=== PATIENT | male | born 1955 | race Hispanic/Latino ===

== ENCOUNTER 2016-09-11 14:30 | Emergency (ER) | payer OTHER ==
[~2016-09-11] VITALS: Ht 177.8 cm; Wt 87.1 kg
[~2016-09-11 14:30] MED LIST: ALLOPURINOL100 M1 PO; AMLODIPINE BESYL5 M1 PO; COLCHICINE0.6 M2 PO; CRESTOR20 M2 PO; MOBIC15 M1 PO; MULTI-DAY VITA1 EACH PO; NASONEX17 GM NASB; PANTOPRAZOLE SO40 M1 PO; PROVENTIL HFA6.7 GM INH; RANITIDINE HCL300 M1 PO; VITAMIN D250000 UNIT PO
[2016-09-11] MEDS ORDERED: AFRIN30 ML NASB (15:52)
[2016-09-11] MEDS ORDERED: ADVIL200 M2 PO (15:53)
--- NOTE | 2016-09-11 16:05 | ED GI/GU/ABDOMINAL COMPLAINT ---
History of Present Illness General Chief Complaint: Abdominal Pain/Flank Pain Stated Complaint: HERNIA PAIN Source: patient Exam Limitations: no limitations Vital Signs & Intake/Output Vital Signs & Intake/Output Vital Signs Date Time Temp Pulse Resp B/P B/P Pulse O2 O2 Flow FiO2 Mean Ox Delivery Rate 09/11 1803 98.5 98 20 140/84 98 Room Air 09/11 1602 Room Air 09/11 1437 98.2 102 20 143/86 97 Room Air Allergies Coded Allergies: No Known Allergies (12/06/15) Reconcile Medications Albuterol Sulfate (Proventil Hfa) 6.7 GM HFA.AER.AD 2 PUF INH PRN ASTHMA ( Reported) Allopurinol 100 MG TABLET 1 TAB PO DAILY GOUT (Reported) Amlodipine Besylate 5 MG TABLET 1 TAB PO DAILY BP (Reported) Colchicine 0.6 MG TABLET 1 TAB PO PRN GOUT FLARE (Reported) Doxycycline Hyclate 100 MG TABLET 1 TAB PO BID tick bourne disease Ergocalciferol (Vitamin D2) (Vitamin D2) 50,000 UNIT CAPSULE 1 CAP PO QFRI SUPPLEMENT (Reported) Ergocalciferol (Vitamin D2) (Vitamin D2) 50,000 UNIT CAPSULE 1 CAP PO QW vit d def Ibuprofen (Advil) 200 MG TABLET 2-4 TAB PO PRN PAIN (Reported) Multivitamin (Multi-Day Vitamins) 1 EACH TABLET 1 TAB PO DAILY SUPPLEMENT ( Reported) Oxymetazoline HCl (Afrin) 0.05 % SPRAY 2 SPRAY [place]B DAILY ALLERGIES (Reported ) Pantoprazole Sodium 40 MG TABLET.DR 1 TAB PO DAILY GI (Reported) Ranitidine HCl 300 MG TABLET 1 TAB PO QPM GI (Reported) Rosuvastatin Calcium (Crestor) 20 MG TABLET 1 TAB PO DAILY CHOLESTEROL ( Reported) Triage Note: PT C/O UMBILICAL PAIN FROM WHERE HIS HERNIA WAS REPAIRED IN MARCH. PT STATES SHARP PAINS SINCE YESTERDAY MORNING. TOOK ADVIL FOR PAIN WITHOUT RELIEF. PT C/O DIARRHEA AND NAUSEA. Triage Nurses Notes Reviewed? yes Onset: Abrupt Duration: day(s): (1), constant, continues in ED Timing: recent history Quality/Severity: moderate, sharpness, severe Radiation: LLQ Activities at Onset: none No Modifying Factors: none HPI: 60-year-old male comes into emergency room for further evaluation of left lower abdominal pain. Patient reports that he has a previous history of partial colectomy and 2 hernia repairs. The 2 hernia repairs were performed back in May of this year. It was performed by Dr Maya. Patient complaining of sharp pain today. Denies any fevers or chills. Associated nausea. Denies any change in bowel movement. Denies any other associated symptoms. (LEVAR CARDONA) Past History Travel History Traveled to [place] past 21 day No Medical History Any Pertinent Medical History? see below for history Neurological: NONE EENT: NONE Cardiovascular: hypertension, hyperlipidemia Respiratory: NONE Gastrointestinal: GERD Hepatic: NONE Renal: NONE Musculoskeletal: gout Psychiatric: NONE Endocrine: NONE Blood Disorders: NONE Cancer(s): COLON NARCOTICS INVESTIGATOR/Reproductive: NONE Surgical History Surgical History: non-contributory Psychosocial History What is your primary language Setswana Tobacco Use: Never used ETOH Use: occasional use Illicit Drug Use: denies illicit drug use Family History Hx Contributory? No (LEVAR CARDONA) Review of Systems Review of Systems Constitutional: Reports: no symptoms. EENTM: Reports: no symptoms. Respiratory: Reports: no symptoms. Cardiovascular: Reports: no symptoms. GI: Reports: see HPI. Genitourinary: Reports: no symptoms. Musculoskeletal: Reports: no symptoms. Skin: Reports: no symptoms. Neurological/Psychological: Reports: no symptoms. Hematologic/Endocrine: Reports: no symptoms. Immunologic/Allergic: Reports: no symptoms. All Other Systems: Reviewed and Negative (LEVAR CARDONA) Physical Exam Physical Exam General Appearance: well developed/nourished, no apparent distress, alert Head: atraumatic, normal appearance Eyes: Bilateral: normal appearance. Ears, Nose, Throat, Mouth: hearing grossly normal, moist mucous membrane Neck: normal inspection, full range of motion Respiratory: normal breath sounds, no respiratory distress Cardiovascular: regular rate/rhythm Gastrointestinal: soft Back: normal inspection Extremities: normal range of motion Neurologic/Psych: awake, alert, oriented x 3, normal gait, normal mood/affect Skin: intact, normal color Core Measures ACS in differential dx? No Severe Sepsis Present: No Septic Shock Present: No (LEVAR CARDONA) Progress Differential Diagnosis: AMI, appendicitis, biliary colic, bowel obstruction, colon cancer, diverticulitis, gastritis, hepatitis, hernia, hemorrhoids, ischemic bowel, inflamm bowel dis, Elisa-Marcia tear, pancreatitis, prostatitis, peptic ulcer, PUD/GERD, perforated viscous, pyelonephritis, STD, testicular torsion, ureterolithiasis, urinary retention, UTI/pyelo Plan of Care: Orders Procedure Date/time Status Add-on Test (ER Only) 09/11 1750 Active HEPATITIS PANEL 09/11 1611 Active URINALYSIS 09/11 1605 Complete LIPASE 09/11 1605 Active COMPREHENSIVE METABOLIC PANEL 09/11 1605 Active CBC WITHOUT DIFFERENTIAL 09/11 1605 Complete Laboratory Tests 09/11/16 1618: Urinalysis LIGHT H, Urine Color YEL, Urine Clarity CLEAR, Urine pH 5.5, Ur Specific [place] >= 1.030, Urine Protein NEG, Urine Ketones NEG, Urine Nitrite NEG, Urine Bilirubin NEG@ICTO, Urine Urobilinogen 0.2, Ur Leukocyte Esterase NEG , Ur Microscopic SEDIMENT EXAMINED, Urine RBC 1-3, Urine WBC RARE, Ur Epithelial Cells FEW, Urine Bacteria RARE H, Granular Casts RARE H, Urine Mucus MOD H, Urine Hemoglobin TRACE-INTACT H, Urine Glucose NEG 09/11/16 1611: Anion Gap 13, Estimated GFR > 60, BUN/Creatinine Ratio 14.3, Glucose 114 H, Calcium 9.3, Total Bilirubin 0.9, AST 121 H, ALT 64, Alkaline Phosphatase 149 H, Total Protein 8.5 H, Albumin 4.3, Globulin 4.2, Albumin/Globulin Ratio 1.0 L, Lipase 273, CBC w Diff NO MAN DIFF REQ, RBC 4.05 L, MCV 99.9 H, MCH 33.5 H , RDW 14.8 H, MPV 8.9, Gran % 68.7, Lymphocytes % 19.8 L, Monocytes % 8.4, Eosinophils % 2.7, Basophils % 0.4, Absolute Granulocytes 3.4, Absolute Lymphocytes 1.0 L, Absolute Monocytes 0.4, Absolute Eosinophils 0.1, Absolute Basophils 0, PUBS MCHC 33.6, Hepatitis A IgM Ab Pending, Hep Bs Antigen Pending, Hep B Core IgM Ab Conf Pending, Hepatitis C Antibody Pending Diagnostic Imaging: Viewed by Me: CT Scan. Discussed w/RAD: CT Scan. Radiology Impression: SERVICE DATE: 09/11/16-1604 EXAM TYPE: CAT - CT ABD & PELVIS W/O IV CONTRAS EXAMINATION: CT ABDOMEN AND PELVIS WITHOUT CONTRAST CLINICAL INFORMATION: Left lower quadrant pain. History of prior partial colectomy with hernia COMPARISON: CT scan abdomen pelvis 08/26/2008 TECHNIQUE: Multidetector volumetric imaging was performed from the superior aspect of the liver through the pubic symphysis. Sagittal and coronal reformatted images were obtained on the technologist's workstation. DLP: 526.77 mGy-cm FINDINGS: LUNG BASES: The visualized lung bases are unremarkable. LIVER, GALLBLADDER, AND BILIARY TREE: The liver is normal in size, shape, and attenuation. No focal hepatic lesion or biliary ductal dilatation is present. The gallbladder is unremarkable with no evidence of radiopaque gallstones, gallbladder wall thickening, or obvious pericholecystic inflammatory changes. PANCREAS: Unremarkable. SPLEEN: Unremarkable. Small splenule at the hilum spleen ADRENAL GLANDS: Unremarkable. KIDNEYS AND URETERS: The kidneys are normal in size, shape , and attenuation. No hydronephrosis, hydroureter, or calculi seen. No perinephric stranding. BLADDER: Unremarkable. GASTROINTESTINAL TRACT: Status post partial right hemicolectomy with surgical suture line, anastomosis at the hepatic flexure. There is mild diverticulosis of sigmoid left colon. No diverticulitis. No acute change of the bowel. No bowel obstruction. No bowel wall thickening or edema. No dilated bowel loop. Moderate volume of stool in the colon. ABDOMINAL WALL: Intact surgical mesh at the anterior abdominal wall without recurrent hernia LYMPH NODES: Normal. VASCULAR: Scattered vascular wall calcifications of aorta and iliac vessels without aneurysm. PELVIC VISCERA: Unremarkable. OSSEOUS STRUCTURES: Disc height narrowing vacuum disc phenomena endplate spurs L5-S1. There is mild multilevel degenerative facet joint arthrosis at lower lumbar spine. Mild degenerative lipping at the anterior endplates of lower thoracic vertebrae. IMPRESSION: No acute abnormality. Status post partial right hemicolectomy. Diverticulosis left colon but no acute change of the bowel. Surgical mesh anterior abdominal wall without recurrent ventral wall hernia. DICTATED BY: MANDA SALTER MD DATE/TIME DICTATED:09/11/161641 INFORMATION SYSTEMS DIRECTOR:YANETH DATE/TIME TRANSCRIBED:09/11/161641 Initial ED EKG: none Comments: 09/11/2016 7:28:14 PM Patient was here for primarily abdominal pain. Abdominal pain workup was normal. Patient was found to have a slightly low platelet count, slightly anemic, and a little elevated AST ALT. Consider the diagnosis of atypical tick borne disease and a tick panel was sent off. Patient was started on doxycycline. Case was discussed with Dr. Puckett. Hepatitis panel was also sent off. Patient needs follow-up with his primary care doctor. Return if any other concerns. Patient did admit to being bitten by a tick about a year ago and underwent a short course of treatment with antibiotics. Patient clinically looks well. This can be followed up as an outpatient. (LEVAR CARDONA) Departure Departure Disposition: HOME OR SELF CARE Condition: Stable Clinical Impression Primary Impression: Abdominal pain Secondary Impressions: Thrombocytopenia Referrals: BERTHA ANDERSON MD (PCP/Family) Additional Instructions: Follow-up with your primary care doctor. Return if any concerns worsening symptoms. Follow-up with tick panel and hepatitis panel. Contact your regular doctor in regards to further refills for vitamin D. Take doxycycline as prescribed. Please go over all results of today's visit with your primary care doctor. Contact your primary care doctor to let them know you were here in the emergency room. There may be nonspecific findings which may not be related to your visit today here in the emergency room but may require further evaluation and chronic monitoring by your primary care doctor. If you had a laceration today the chance of foreign body always remains. You should follow-up with your primary care doctor for recheck in 3-5 days for a wound check. If you had an x-ray done there is a chance that a fracture could have been missed on initial read and you should follow-up with your primary care doctor for repeat x-rays if symptoms persist. If your blood pressure was elevated here in the emergency room please have rechecked by her primary care doctor within the next 48 hours by your primary care doctor. If you were prescribed a narcotic here in the emergency room or any type of controlled substances you're not allowed to drive while taking this medication or operate any type of heavy machinery. Narcotics can make you feel lightheaded dizziness nausea and can cause constipation. You may need to picking table worker a stool softener. Thank you for choosing [facility] emergency room. Please return to the emergency room immediately if you have any other concerns worsening of symptoms. Departure Forms: Customer Survey General Discharge Information Prescriptions: Current Visit Scripts Doxycycline Hyclate 1 TAB PO BID #28 TAB Ergocalciferol (Vitamin D2) (Vitamin D2) 1 CAP PO QW #4 CAP Ref 1 (LEVAR CARDONA) PA/CONTROL SYSTEMS DRAFTING OFFICER Co-Sign Statement Statement: ED Attending supervision documentation- [] I saw and evaluated the patient. I have also reviewed all the pertinent lab results and diagnostic results. I agree with the findings and the plan of care as documented in the PA's/CONTROL SYSTEMS DRAFTING OFFICER's documentation. [x] I have reviewed the ED Record and agree with the PA's/CONTROL SYSTEMS DRAFTING OFFICER's documentation. [] Additions or exceptions (if any) to the PAs/CONTROL SYSTEMS DRAFTING OFFICER's note and plan are summarized below: [] (EDEN PUCKETT DO
--- NOTE | 2016-09-11 16:55 | CT SCAN REPORT ---
EXAMINATION: CT ABDOMEN AND PELVIS WITHOUT CONTRAST CLINICAL INFORMATION: Left lower quadrant pain. History of prior partial colectomy with hernia COMPARISON: CT scan abdomen pelvis 08/26/2008 TECHNIQUE: Multidetector volumetric imaging was performed from the superior aspect of the liver through the pubic symphysis. Sagittal and coronal reformatted images were obtained on the technologist's workstation. DLP: 526.77 mGy-cm FINDINGS: LUNG BASES: The visualized lung bases are unremarkable. LIVER, GALLBLADDER, AND BILIARY TREE: The liver is normal in size, shape, and attenuation. No focal hepatic lesion or biliary ductal dilatation is present. The gallbladder is unremarkable with no evidence of radiopaque gallstones, gallbladder wall thickening, or obvious pericholecystic inflammatory changes. PANCREAS: Unremarkable. SPLEEN: Unremarkable. Small splenule at the hilum spleen ADRENAL GLANDS: Unremarkable. KIDNEYS AND URETERS: The kidneys are normal in size, shape, and attenuation. No hydronephrosis, hydroureter, or calculi seen. No perinephric stranding. BLADDER: Unremarkable. GASTROINTESTINAL TRACT: Status post partial right hemicolectomy with surgical suture line, anastomosis at the hepatic flexure. There is mild diverticulosis of sigmoid left colon. No diverticulitis. No acute change of the bowel. No bowel obstruction. No bowel wall thickening or edema. No dilated bowel loop. Moderate volume of stool in the colon. ABDOMINAL WALL: Intact surgical mesh at the anterior abdominal wall without recurrent hernia LYMPH NODES: Normal. VASCULAR: Scattered vascular wall calcifications of aorta and iliac vessels without aneurysm. PELVIC VISCERA: Unremarkable. OSSEOUS STRUCTURES: Disc height narrowing vacuum disc phenomena endplate spurs L5-S1. There is mild multilevel degenerative facet joint arthrosis at lower lumbar spine. Mild degenerative lipping at the anterior endplates of lower thoracic vertebrae. IMPRESSION: No acute abnormality. Status post partial right hemicolectomy. Diverticulosis left colon but no acute change of the bowel. Surgical mesh anterior abdominal wall without recurrent ventral wall hernia.
[2016-09-11 17:01] LABS: ABSOLUTE BASOPHIL COUNT 0 /CUMM (0.0-0.2); ABSOLUTE EOSINOPHIL COUNT 0.1 /CUMM (0.0-0.7); ABSOLUTE GRANULOCYTE CT 3.4 /CUMM (1.4-6.5); ABSOLUTE MONOCYTE COUNT 0.4 /CUMM (0.10-0.60); BASOPHIL % 0.4 % (0.0-2.0); EOSINOPHIL % 2.7 % (0-5); GRANULOCYTE % 68.7 % (42.2-75.2); HEMATOCRIT 40.4 % (42-52); MEAN CORPUSCULAR HGB 33.5 PG (27.0-31.0); MEAN CORPUSCULAR HGB CONC 33.6 G/DL (33.0-37.0); MEAN CORPUSCULAR VOLUME 99.9 FL (80.0-94.0); MEAN PLATELET VOLUME 8.9 FL (7.4-10.4); RBC DISTRIBUTION WIDTH 14.8 % (11.5-14.5); RED BLOOD CELL CT 4.05 /CUMM (4.70-6.10)
[2016-09-11 17:04] LABS: PLATELET COUNT 99 /CUMM (130-400)
[2016-09-11] MEDS ORDERED: DOXYCYCLINE HY100 M4 PO (17:51)
[2016-09-11] MEDS ORDERED: VITAMIN D250000 UNIT PO (17:52)
[2016-09-11 18:03] VITALS: BP 140/84
== END 2016-09-11 18:17 ==
LOC: ERH 14:30
PROVIDERS: Physician Assistant Medical
DX: R10.32 Left lower quadrant pain (principal); D69.6 Thrombocytopenia, unspecified; I10 Essential (primary) hypertension
CPT/HCPCS: 86317; 87798; 74176; 81001